=== PATIENT | male | born 1995 | race Caucasian/White ===

== ENCOUNTER 2016-12-15 08:27 | Emergency (ER) | payer BC ==
[~2016-12-15] VITALS: Ht 175.3 cm; Wt 78.0 kg
[~2016-12-15 08:27] MED LIST: CITA20TA9 PO; IBUP-103 PO; ZNTT/150 PO
[2016-12-15 08:29] VITALS: TEMP 36.9; Ht 175.3 cm; Wt 78.0 kg
[2016-12-15 08:47] LABS: HEMATOCRIT 46.2 % (42-52); MEAN CORPUSCULAR HEMOGLOBIN 31.3 pg (25-34); MEAN CORPUSCULAR HGB CONC 35.9 g/dl (32-36); MEAN PLATELET VOLUME 11.3 fL (7.4-10.4); PLATELET COUNT 185 K/uL (130-400); RED BLOOD COUNT 5.31 M/uL (4.7-6.1); WHITE BLOOD COUNT 8.41 K/uL (4.8-10.8)
[2016-12-15] MEDS ORDERED: BUSP-8 PO (08:49)
[2016-12-15 08:59] LABS: BUN/CREATININE RATIO 17.9 (10-20); CALCIUM 9.8 mg/dl (8.5-10.1); CREATININE 1.3 mg/dl (0.60-1.40); POTASSIUM 3.4 mmol/L (3.5-5.1)
--- NOTE | 2016-12-15 09:01 | DIAGNOSTIC IMAGING REPORT ---
SINGLE VIEW CHEST CLINICAL HISTORY: Atypical chest pain. FINDINGS: An AP, portable, upright chest radiograph is obtained. No prior studies are available for comparison at the time of dictation. The examination is mildly degraded by portable technique and patient rotation. The cardiomediastinal silhouette is unremarkable. The lungs and pleural spaces are clear. No pneumothorax is seen. The bony thorax is grossly intact. IMPRESSION: No active disease in the chest. Electronically signed by: Steven Black M.D. 12/15/2016 8:59 AM Dictated Date/Time: 12/15/2016 8:59 AM
[2016-12-15 09:02] LABS: PROTHROMBIN TIME (PATIENT) 11.2 SECONDS (9.0-12.0)
[2016-12-15 09:03] LABS: ALB/GLOB RATIO 1.4 (0.9-2)
--- NOTE | 2016-12-15 15:09 | EMERGENCY ROOM VISIT NOTE ---
History Report prepared by Ian: Princess Arredondo Under the Supervision of: Dr. Darius Ibrahim D.O. First contact with patient: 09:35 Chief Complaint: CHEST PAIN Stated Complaint: CHEST PAIN Nursing Triage Summary: Pt was studying at [employer] when he suddenly developed chest pain along with SOB. Pt stated that he has anxiety, but has never felt anything like this before. Pt states CP is improved, but still present. Pt recently started on Buspar. PMH: Anxiety History of Present Illness The patient is a 21 year old male who presents to the Emergency Room with complaints of an episode of lightheadedness which occurred 1.5 hours ago. The patient reports he was studying in [employer] [facility], when he began to feel lightheaded and close to passing out. He felt short of breath and his heart was racing. He says that he felt weak. This has never happened to him before. He is currently feeling better. The shortness of breath felt similar to what he experiences with his anxiety. His anxiety is usually not this severe. He denies any nausea, vomiting, diarrhea, weakness in arms or legs, swelling of calfs, dysuria, hemoptysis, melena, or hematochezia. He states that he was started on Buspar on 3 days ago. He denies any changes to his sleep or caffeine consumption habits. He denies any long trips recently hemoptysis, swelling of his calves, recent surgeries, long trips, smoking, previous blood clots, or estrogen use. He has no family history of sudden . He has no history of diabetes, hypertension, CAD, or hyperlipidemia. He has no history of any aortic issues. Dad does have a history of cardiomyopathy. Source of History: patient Onset: 1.5 hours ago Position: other (global) Quality: other (lightheadedness) Timing: other (episodic) Associated Symptoms: + SOB, + weakness, No diarrhea, No hematochezia, No melena, No nausea, No urinary symptoms, No vomiting Note: Pt denies weakness in arms or legs, swelling of calfs, hemoptysis. Review of Systems See HPI for pertinent positives & negatives. A total of 10 systems reviewed and were otherwise negative. Past Medical & Surgical Medical Problems: (1) Stomach problems Surgical Problems: (1) H/O wisdom tooth extraction Family History Cancer Heart disease Social History Smoking Status: Never Smoker Alcohol Use: occasionally Marital Status: single Housing Status: lives with roommate Occupation Status: [employer] student Current/Historical Medications Scheduled Buspirone Hcl (Buspirone Hcl), 10 MG PO BID Allergies Coded Allergies: No Known Allergies (Unverified , 07/14/15) Physical Exam Vital Signs Date Time Temp Pulse Resp B/P Pulse Ox O2 Delivery O2 Flow Rate FiO2 12/15/16 17:35 77 18 125/77 98 12/15/16 16:07 73 18 126/76 98 Room Air 12/15/16 16:02 82 12/15/16 14:09 68 18 138/81 98 Room Air 12/15/16 12:06 68 12/15/16 11:47 78 18 140/87 98 Room Air 12/15/16 08:41 99 Room Air 12/15/16 08:30 65 12/15/16 08:29 99 Room Air 12/15/16 08:29 36.9 69 18 147/89 98 Room Air Physical Exam GENERAL: Sitting up in bed, alert, well appearing, well nourished, no distress, non-toxic EYE EXAM: normal conjunctiva, PERRL and EOM's intact OROPHARYNX: no exudate, no erythema, lips, buccal mucosa, and tongue normal and mucous membranes are moist NECK: supple, no nuchal rigidity, no adenopathy, non-tender LUNGS: Clear to auscultation. Normal chest wall mechanics HEART: no murmurs, S1 normal and S2 normal ABDOMEN: abdomen soft, non-tender, normo-active bowel sounds, no masses, no rebound or guarding. BACK: Back is symmetrical on inspection and there is no deformity, no midline tenderness, no CVA tenderness. SKIN: no rashes and no bruising. Multiple old scars on back. UPPER EXTREMITIES: upper extremities are grossly normal. Radial pulses equal bilaterally. LOWER EXTREMITIES: No pitting edema. NEURO EXAM: Normal sensorium, cranial nerves II-XII intact, normal speech, no weakness of arms, no weakness of legs. No drift. Finger to nose intact. Gross sensation intact. Medical Decision & Procedures ER Provider Diagnostic Interpretation: Xray results per the radiologist and my interpretation. SINGLE VIEW CHEST CLINICAL HISTORY: Atypical chest pain. FINDINGS: An AP, portable, upright chest radiograph is obtained. No prior studies are available for comparison at the time of dictation. The examination is mildly degraded by portable technique and patient rotation. The cardiomediastinal silhouette is unremarkable. The lungs and pleural spaces are clear. No pneumothorax is seen. The bony thorax is grossly intact. IMPRESSION: No active disease in the chest. Electronically signed by: Steven Black M.D. 12/15/2016 8:59 AM Dictated Date/Time: 12/15/2016 8:59 AM Laboratory Results 12/15/16 08:30 12/15/16 08:30 Test 12/15/16 08:30 12/15/16 11:01 12/15/16 15:53 Red Blood Count 5.31 M/uL (4.7-6.1) Mean Corpuscular Volume 87.0 fL (80-100) Mean Corpuscular Hemoglobin 31.3 pg (25-34) Mean Corpuscular Hemoglobin Concent 35.9 g/dl (32-36) RDW Standard Deviation 38.9 fL (36.4-46.3) RDW Coefficient of Variation 12.2 % (11.5-14.5) Mean Platelet Volume 11.3 fL (7.4-10.4) Prothrombin Time 11.2 SECONDS (9.0-12.0) Prothromb Time International Ratio 1.0 (0.9-1.1) Activated Partial Thromboplast Time 26.6 SECONDS (21.0-31.0) Partial Thromboplastin Ratio 1.0 D-Dimer < 190 ug/L FEU (0-500) Anion Gap 7.0 mmol/L (3-11) Est Creatinine Clear Calc Drug Dose 89.2 ml/min Estimated GFR () 89.8 Estimated GFR (Non- 77.5 BUN/Creatinine Ratio 17.9 (10-20) Calcium Level 9.8 mg/dl (8.5-10.1) Total Bilirubin 0.8 mg/dl (0.2-1) Aspartate Amino Transf (AST/SGOT) 25 U/L (15-37) Alanine Aminotransferase (ALT/SGPT) 34 U/L (12-78) Alkaline Phosphatase 102 U/L (45-117) Total Creatine Kinase 169 U/L (39-308) Creatine Kinase MB 1.7 ng/ml (0.5-3.6) Creatine Kinase MB Ratio 1.0 (0-3.0) Total Protein 7.9 gm/dl (6.4-8.2) Albumin 4.6 gm/dl (3.4-5.0) Globulin 3.3 gm/dl (2.5-4.0) Albumin/Globulin Ratio 1.4 (0.9-2) Bedside Troponin I 0.010 ng/ml (0-0.045) Troponin I 0.018 ng/ml (0-0.045) Laboratory results per my review. ECG Indication: chest pain Rate (beats per minute): 65 Rhythm: sinus rhythm Findings: no ectopy, other (right axis) ED Course ED COURSE: Vital signs were reviewed and showed hypertension. The patients medical record was reviewed The above diagnostic studies were performed and reviewed. ED treatments and interventions as stated above. 0937: The patient was evaluated in room A3. A complete history and physical examination was performed. 1135: I reevaluated the patient. He is resting comfortably. A repeat troponin will be taken. 1500: I informed the patient's mother of the patient's results so far. The patient was walking around without the monitor and experienced some chest pain. 1648: I discussed the patient's case with Dr. Palacios, [facility] - cardiology. He agrees with the treatment plan. 1715: Upon reevaluation, the patient is resting comfortably. I discussed my findings with the patient and he understands and agrees with the treatment plan. Based on the patients age, coexisting illnesses, exam and lab findings the decision to treat as an outpatient was made. The patient remained stable while under my care. The patient appeared well at the time of discharge. Medical Decision Differential diagnoses includes but is not limited to acute coronary syndrome, myocardial infarction, pericarditis, pulmonary embolus, aortic dissection, pneumonia, pneumothorax, musculoskeletal, shingles, esophageal. Patient is a 19-year-old male who presents the ER while studying are becoming lightheaded, short of breath and felt his heart racing. He notes he has had similar abscesses in the past before with this. He has no cardiac risk factors with the exception of his father who has a cardiomyopathy. No PE risk factors. D-dimer was negative. [id number] troponin was ordered initially by nursing staff and was negative. His repeat was negative but still detectable. CBC along with BMP, LFTs are unremarkable. Chest x-ray was unremarkable as well. Consequently based on this along with his normal EKG I did elect to obtain an 8 hour troponin. Troponin at 8 hours was 0.018. I discussed my findings with cardiology and they agree with following up as an outpatient. He had no exertional symptoms. EKG was reviewed by cardiology patient was discharged follow with his primary care doctor and given a referral to cardiology as an outpatient since father has a cardiomyopathy which they are unsure of. Discussed with Pt concerning signs and symptoms to watch out for. Pt was instructed to follow up with their PCP and discussed with the patient their option to return to the ED at anytime for persistent or worsening symptoms. The appropriate anticipatory guidance and out-patient management, including indications for return to the emergency department, were explained at length to the patient and understood. Consults Time Called: 1640 Consulting Physician: Dr. Palacios, [facility] - cardiology Returned Call: [phone] I discussed the patient's case with him. He agrees with the treatment plan. Impression Primary Impression: Heart palpitations Additional Impression: Shortness of breath Scribe Attestation The scribe's documentation has been prepared under my direction and personally reviewed by me in its entirety. I confirm that the note above accurately reflects all work, treatment, procedures, and medical decision making performed by me. Departure Information Dispostion Home / Self-Care Referrals No Doctor, Assigned (PCP) Bryce Reynoso M.D. Forms HOME CARE DOCUMENTATION FORM, IMPORTANT VISIT INFORMATION Patient Instructions Chest Pain - [facility], [facility] Additional Instructions Please follow up with your primary care doctor or if you are a student [facility] with in the next 24 hours. Any worsening of your symptoms, please return to the ED immediately. This includes passing out, worsening chest pain, new shortness of breath or any other concerning signs or symptoms from your standpoint. Please follow-up with cardiology as listed below within one week. Problem Qualifiers
[2016-12-15 17:35] VITALS: BP 125/77; PULSE 77; O2SAT 98
== END 2016-12-15 17:36 | disposition home or self-care (01) ==
LOC: EDBD 08:27 → C.EDA 08:27
DX: R00.2 Palpitations (principal); R06.02 Shortness of breath; Z87.19 Personal history of other diseases of the digestive system; Z79.899 Other long term (current) drug therapy; Z80.9 Family history of malignant neoplasm, unspecified; Z82.49 Family history of ischemic heart disease and other diseases of the circulatory system